=== PATIENT | male | born 1960 | race African-American/Black ===

== ENCOUNTER 2016-11-06 22:51 | Emergency (ER) | payer MEDICAID ==
[~2016-11-06] VITALS: Ht 175.3 cm; Wt 98.0 kg
[~2016-11-06 22:51] MED LIST: BENAZEPRIL; ULORIC
[2016-11-07] MEDS ORDERED: IPRATROPIUM BROMIDE (0.02%) 0.5MG/2.5ML NEB HHN STA (00:16)
[2016-11-07] MEDS ORDERED: ALBUTEROL (0.083%) 2.5MG/3ML NEB HHN STA (00:16)
[2016-11-07] MEDS ORDERED: KETOROLAC 60MG/2ML VIAL IM ONE (00:30)
[2016-11-07 02:04] LABS: CLARITY URINE CLEAR (CLEAR); COLOR URINE YELLOW (YELLOW); GLUCOSE URINE NEGATIVE (NEGATIVE); KETONES URINE NEGATIVE (NEGATIVE); LEUKOCYTE ESTERASE URINE NEGATIVE (NEGATIVE); NITRITE URINE NEGATIVE (NEGATIVE); OCCULT BLOOD URINE 1+ (NEGATIVE); PH URINE 5.5 (4.5-8.0); PROTEIN URINE NEGATIVE (NEGATIVE); SPECIFIC GRAVITY URINE 1.016 (1.005-1.030); UROBILINOGEN URINE 0.2 E.U./dL (0.2-1.0)
[2016-11-07 02:07] LABS: BACTERIA URINE NONE SEEN; CALCIUM PHOSPHATE CRYSTALS UR NONE SEEN /lpf; RBC URINE 0-2 /hpf (0-2); SQUAMOUS EPITHELIAL CELL URINE NONE SEEN /lpf (RARE/1+); WAXY CASTS URINE NONE SEEN /lpf; WBC URINE NONE SEEN /hpf (0-2); YEAST URINE NONE SEEN
[2016-11-07 02:58] VITALS: BP 113/75
== END 2016-11-07 03:00 | disposition home or self-care (01) ==
LOC: ER 22:52
DX: S39.012A Strain of muscle, fascia and tendon of lower back, initial encounter (principal); J44.9 Chronic obstructive pulmonary disease, unspecified; J06.9 Acute upper respiratory infection, unspecified; M19.90 Unspecified osteoarthritis, unspecified site; I10 Essential (primary) hypertension; M10.9 Gout, unspecified; G89.29 Other chronic pain; Z93.3 Colostomy status; X58.XXXA Exposure to other specified factors, initial encounter; Y93.89 Activity, other specified; Y99.8 Other external cause status; Y92.89 Other specified places as the place of occurrence of the external cause
CPT/HCPCS: 71010; 81001; 94640; 96372; 99285; J1885; J7611

== ENCOUNTER 2016-12-30 03:44 | Emergency (ER) | payer MEDICAID ==
[~2016-12-30] VITALS: Ht 175.3 cm; Wt 100.0 kg
[2016-12-30 04:34] VITALS: BP 148/88
[2016-12-30] MEDS ORDERED: SODIUM CHLORIDE 0.9% 1,000 ML IV ONE (04:51)
[2016-12-30 05:20] LABS: BASOPHILS % 0.5 % (0.0-2.0); CARBON DIOXIDE 28 mEq/L (21-32); CHLORIDE 108 mEq/L (98-107); HEMATOCRIT. 38.1 % (42.0-52.0); HEMOGLOBIN. 12.4 g/dL (14.0-18.0); LYMPHOCYTES % 42.4 % (20.0-50.0); MEAN CORPUSCULAR HEMOGLOBIN 27.9 pg (28.0-32.0); MEAN CORPUSCULAR VOLUME 85.7 fL (80.0-94.0); MEAN PLATELET VOLUME 8.7 fl (7.4-10.4); MONOCYTES % 7.9 % (2.0-8.0); NEUTROPHILS % 49.2 % (40.0-76.0); PLATELET 213 x1000/uL (130-400); RED BLOOD CELL COUNT 4.45 mill/uL (4.7-6.1); RED CELL DISTRIBUTION WIDTH 14.7 % (11.6-14.6)
== END 2016-12-30 06:55 | disposition home or self-care (01) ==
LOC: ER 04:03
DX: M54.9 Dorsalgia, unspecified (principal); R05 Cough; I10 Essential (primary) hypertension; J44.9 Chronic obstructive pulmonary disease, unspecified; Z87.01 Personal history of pneumonia (recurrent); Z93.3 Colostomy status; Z87.19 Personal history of other diseases of the digestive system
CPT/HCPCS: 36415; 71010; 80053; 83690; 85025; 93005; 96360; 99285; J7030; Z7610

== ENCOUNTER 2017-03-11 20:14 | Emergency (ER) | payer MEDICAID ==
[~2017-03-11] VITALS: Ht 175.3 cm; Wt 97.0 kg
[2017-03-11] MEDS ORDERED: KETOROLAC 60MG/2ML VIAL IM ONE (23:00)
[2017-03-11] MEDS ORDERED: SODIUM CHLORIDE 0.9% 1,000 ML IV ONE (23:00)
[2017-03-12 01:08] LABS: BASOPHILS % 0.6 % (0.0-2.0); HEMATOCRIT. 35.4 % (42.0-52.0); HEMOGLOBIN. 11.7 g/dL (14.0-18.0); LYMPHOCYTES % 35.4 % (20.0-50.0); MEAN CORPUSCULAR HEMOGLOBIN 27.8 pg (28.0-32.0); MEAN CORPUSCULAR VOLUME 84.2 fL (80.0-94.0); MEAN PLATELET VOLUME 9.2 fl (7.4-10.4); MONOCYTES % 10.4 % (2.0-8.0); NEUTROPHILS % 53.6 % (40.0-76.0); PLATELET 156 x1000/uL (130-400); RED BLOOD CELL COUNT 4.21 mill/uL (4.7-6.1); RED CELL DISTRIBUTION WIDTH 15.3 % (11.6-14.6)
[2017-03-12 01:13] LABS: CHLORIDE 106 mEq/L (98-107); INR 1.1
[2017-03-12 01:24] LABS: CARBON DIOXIDE 26 mEq/L (21-32)
[2017-03-12] MEDS ORDERED: SODIUM CHLORIDE 0.9% 1,000 ML IV ONE (01:30)
[2017-03-12 03:50] VITALS: BP 119/54
== END 2017-03-12 03:58 | disposition left against medical advice (07) ==
LOC: ER 21:12 → EDBEDREQTM 03-12 02:19 → EDBEDREQ 03-12 02:19 → ENRESERV 03-12 03:29 → ER 03-12 03:58 → CANBEDREQ 03-13 07:22
DX: M25.561 Pain in right knee (principal); M10.9 Gout, unspecified; N17.9 Acute kidney failure, unspecified; J44.9 Chronic obstructive pulmonary disease, unspecified; I10 Essential (primary) hypertension; Z91.14 Patient's other noncompliance with medication regimen; Z93.3 Colostomy status
CPT/HCPCS: 36415; 73562; 80053; 85025; 85610; 96360; 96361; 96372; 99285; J1885; J7030; Z7610

== ENCOUNTER 2017-08-10 09:29 | Emergency (ER) | payer MEDICAID ==
[~2017-08-10] VITALS: Ht 175.3 cm; Wt 96.0 kg
[2017-08-10] MEDS ORDERED: MORPHINE SULFATE 4 MG/ML CPJ (NOT FOR IM USE) IV STA (10:29)
[2017-08-10] MEDS ORDERED: ONDANSETRON HCL 4MG/2ML VIAL IV STA (10:29)
[2017-08-10] MEDS ORDERED: ASPIRIN 81MG TABLET PO STA (10:29)
[2017-08-10 12:09] LABS: CLARITY URINE CLEAR (CLEAR); COLOR URINE YELLOW (YELLOW); KETONES URINE NEGATIVE (NEGATIVE); LEUKOCYTE ESTERASE URINE NEGATIVE (NEGATIVE); NITRITE URINE NEGATIVE (NEGATIVE); OCCULT BLOOD URINE NEGATIVE (NEGATIVE); PH URINE 5.5 (4.5-8.0); PROTEIN URINE 1+ (NEGATIVE)
[2017-08-10 12:44] LABS: BASOPHILS % 0.3 % (0.0-2.0); HEMATOCRIT. 39.4 % (42.0-52.0); HEMOGLOBIN. 13.3 g/dL (14.0-18.0); LYMPHOCYTES % 50.7 % (20.0-50.0); MEAN CORPUSCULAR HEMOGLOBIN 28.8 pg (28.0-32.0); MEAN CORPUSCULAR VOLUME 85.5 fL (80.0-94.0); MEAN PLATELET VOLUME 8.9 fl (7.4-10.4); MONOCYTES % 8.6 % (2.0-8.0); NEUTROPHILS % 40.4 % (40.0-76.0); PLATELET 178 x1000/uL (130-400); RED BLOOD CELL COUNT 4.61 mill/uL (4.7-6.1); RED CELL DISTRIBUTION WIDTH 13.4 % (11.6-14.6)
[2017-08-10 12:49] LABS: CARBON DIOXIDE 27 mEq/L (21-32); CHLORIDE 107 mEq/L (98-107)
[2017-08-10 12:53] LABS: TROPONIN I < 0.02 ng/mL (0.00-0.04)
[2017-08-10 13:12] LABS: D-DIMER 0.41 mg/L FEU (<0.50); INR 1.1; PARTIAL THROMBOPLASTIN TIME 27.2 sec (23.4-31.0); PROTHROMBIN TIME 11.1 sec (9.4-11.6)
[2017-08-10 13:31] VITALS: BP 128/77
== END 2017-08-10 14:49 | disposition left against medical advice (07) ==
LOC: ER 09:29 → CANBEDREQ 14:38 → ER 14:49
DX: R06.09 Other forms of dyspnea (principal); M54.5 Low back pain; R51 Headache; I10 Essential (primary) hypertension; M19.90 Unspecified osteoarthritis, unspecified site; J44.9 Chronic obstructive pulmonary disease, unspecified; M10.9 Gout, unspecified
CPT/HCPCS: 36415; 71045; 72100; 80048; 81001; 83880; 84484; 85025; 85379; 85610; 85730; 87086; 93005; 96374; 96375; 99285; J2270; J2405

== ENCOUNTER 2017-10-17 10:44 | Emergency (ER) | payer MEDICAID ==
[~2017-10-17] VITALS: Ht 175.3 cm; Wt 105.0 kg
[2017-10-17 10:47] VITALS: BP 127/87
[2017-10-17] MEDS ORDERED: MORPHINE SULFATE 10 MG/ML CPJ IM ONE (12:00)
== END 2017-10-17 14:33 | disposition home or self-care (01) ==
LOC: ER 10:49
DX: M54.9 Dorsalgia, unspecified (principal); R51 Headache; F43.9 Reaction to severe stress, unspecified; I10 Essential (primary) hypertension; Z98.890 Other specified postprocedural states
CPT/HCPCS: 71045; 96372; 99283; J2270

== ENCOUNTER 2018-01-09 07:29 | Emergency (ER) | payer MEDICAID ==
[~2018-01-09] VITALS: Ht 175.3 cm; Wt 98.0 kg
[2018-01-09] MEDS ORDERED: KETOROLAC 60MG/2ML VIAL IM ONE (09:30)
[2018-01-09 10:03] LABS: CLARITY URINE CLEAR (CLEAR); COLOR URINE YELLOW (YELLOW); KETONES URINE NEGATIVE (NEGATIVE); LEUKOCYTE ESTERASE URINE NEGATIVE (NEGATIVE); NITRITE URINE NEGATIVE (NEGATIVE); OCCULT BLOOD URINE TRACE (NEGATIVE); PROTEIN URINE NEGATIVE (NEGATIVE); SPECIFIC GRAVITY URINE 1.016 (1.005-1.030)
[2018-01-09 10:54] VITALS: BP 133/88
== END 2018-01-09 10:56 | disposition home or self-care (01) ==
LOC: ER 07:29
DX: M13.842 Other specified arthritis, left hand (principal); M54.5 Low back pain; J44.9 Chronic obstructive pulmonary disease, unspecified; I10 Essential (primary) hypertension; Z79.899 Other long term (current) drug therapy
CPT/HCPCS: 81003; 96372; 99283; J1885

== ENCOUNTER 2018-01-13 06:54 | Emergency (ER) | payer MEDICAID ==
[~2018-01-13] VITALS: Ht 175.3 cm; Wt 98.0 kg
[2018-01-13] MEDS ORDERED: IBUPROFEN 800MG TABLET PO ONE (08:45)
[2018-01-13 09:57] LABS: CLARITY URINE CLEAR (CLEAR); COLOR URINE YELLOW (YELLOW); KETONES URINE NEGATIVE (NEGATIVE); LEUKOCYTE ESTERASE URINE NEGATIVE (NEGATIVE); NITRITE URINE NEGATIVE (NEGATIVE); OCCULT BLOOD URINE 1+ (NEGATIVE); PH URINE 5.5 (4.5-8.0); PROTEIN URINE TRACE (NEGATIVE); SPECIFIC GRAVITY URINE 1.018 (1.005-1.030)
[2018-01-13 12:00] LABS: CHLORIDE 106 mEq/L (98-107)
[2018-01-13 12:18] LABS: BASOPHILS % 0.1 % (0.0-2.0); HEMATOCRIT. 35.7 % (42.0-52.0); HEMOGLOBIN. 11.8 g/dL (14.0-18.0); LYMPHOCYTES % 31.9 % (20.0-50.0); MEAN CORPUSCULAR HEMOGLOBIN 29.2 pg (28.0-32.0); MEAN CORPUSCULAR VOLUME 88.4 fL (80.0-94.0); MEAN PLATELET VOLUME 8.5 fl (7.4-10.4); MONOCYTES % 5.6 % (2.0-8.0); NEUTROPHILS % 62.4 % (40.0-76.0); PLATELET 238 x1000/uL (130-400); RED BLOOD CELL COUNT 4.04 mill/uL (4.7-6.1); RED CELL DISTRIBUTION WIDTH 14.5 % (11.6-14.6)
[2018-01-13 13:00] VITALS: BP 135/66
== END 2018-01-13 13:57 | disposition home or self-care (01) ==
LOC: ER 06:54
DX: N20.0 Calculus of kidney (principal); J44.9 Chronic obstructive pulmonary disease, unspecified; I10 Essential (primary) hypertension; M19.90 Unspecified osteoarthritis, unspecified site
CPT/HCPCS: 36415; 71045; 76770; 80053; 81003; 85025; 99285

== ENCOUNTER 2018-04-16 15:04 | Emergency (ER) | payer MEDICAID ==
[~2018-04-16] VITALS: Ht 175.3 cm; Wt 95.0 kg
[2018-04-16 15:13] VITALS: BP 151/75
== END 2018-04-16 20:13 | disposition left against medical advice (07) ==
LOC: ER 15:04
DX: Z53.21 Procedure and treatment not carried out due to patient leaving prior to being seen by health care provider (principal)

== ENCOUNTER 2018-04-19 07:12 | Emergency (ER) | payer MEDICAID ==
[~2018-04-19] VITALS: Ht 175.3 cm; Wt 95.0 kg
[2018-04-19] MEDS ORDERED: KETOROLAC 30MG/ML VIAL IM ONE (08:30)
[2018-04-19 09:11] VITALS: BP 118/65
== END 2018-04-19 09:16 | disposition home or self-care (01) ==
LOC: ER 07:42
DX: M10.9 Gout, unspecified (principal); M79.89 Other specified soft tissue disorders; I10 Essential (primary) hypertension; Z93.3 Colostomy status; Z98.890 Other specified postprocedural states
CPT/HCPCS: 96372; 99283; J1885; Z7610

== ENCOUNTER 2018-09-02 11:09 | Emergency (ER) | payer MEDICAID ==
[~2018-09-02] VITALS: Ht 175.3 cm; Wt 98.0 kg
[2018-09-02] MEDS ORDERED: HYDROCODONE/ACETAMINOPHEN 5/325MG TABLET PO STA (11:44)
[2018-09-02 12:10] LABS: BASOPHILS % 0.9 % (0.0-2.0); HEMATOCRIT. 33.5 % (42.0-52.0); LYMPHOCYTES % 48.1 % (20.0-50.0); MEAN CORPUSCULAR HEMOGLOBIN 31.1 pg (28.0-32.0); MEAN CORPUSCULAR VOLUME 95.1 fL (80.0-94.0); MEAN PLATELET VOLUME 10.4 fl (7.4-10.4); MONOCYTES % 7.9 % (2.0-8.0); NEUTROPHILS % 43.1 % (40.0-76.0); PLATELET 148 x1000/uL (130-400); RED BLOOD CELL COUNT 3.53 mill/uL (4.7-6.1); RED CELL DISTRIBUTION WIDTH 16.4 % (11.6-14.6)
[2018-09-02 12:15] LABS: CHLORIDE 109 mEq/L (98-107)
[2018-09-02 12:23] LABS: D-DIMER 0.62 mg/L FEU (<0.50); PROTHROMBIN TIME 10.4 sec (9.1-11.1)
[2018-09-02 14:41] VITALS: BP 124/78
== END 2018-09-02 14:42 | disposition home or self-care (01) ==
LOC: ER 11:09
DX: R60.0 Localized edema (principal); N28.9 Disorder of kidney and ureter, unspecified; J44.9 Chronic obstructive pulmonary disease, unspecified; I10 Essential (primary) hypertension; M54.30 Sciatica, unspecified side; M19.90 Unspecified osteoarthritis, unspecified site; M10.9 Gout, unspecified; Z93.3 Colostomy status; Z87.828 Personal history of other (healed) physical injury and trauma; Z98.890 Other specified postprocedural states
CPT/HCPCS: 36415; 71045; 83880; 84484; 85379; 93005; 93970; 99284

== ENCOUNTER 2018-10-12 13:50 | Emergency (ER) | payer MEDICAID ==
[~2018-10-12] VITALS: Ht 175.3 cm; Wt 102.0 kg
[2018-10-12] MEDS ORDERED: KETOROLAC 60MG/2ML VIAL IM ONE (15:45)
[2018-10-12] MEDS ORDERED: ONDANSETRON 4MG ODT PO ONE (15:45)
[2018-10-12] MEDS ORDERED: HYDROCODONE/ACETAMINOPHEN 5/325MG TABLET PO ONE (15:45)
[2018-10-12 16:33] VITALS: BP 118/61
== END 2018-10-12 16:34 | disposition home or self-care (01) ==
LOC: ER 13:50
DX: M54.41 Lumbago with sciatica, right side (principal); M10.9 Gout, unspecified; I10 Essential (primary) hypertension; M25.532 Pain in left wrist
CPT/HCPCS: 96372; 99283; J1885; Q0162

== ENCOUNTER 2018-11-30 11:00 | Emergency (ER) | payer MEDICAID ==
[~2018-11-30] VITALS: Ht 175.3 cm; Wt 100.0 kg
[2018-11-30] MEDS ORDERED: KETOROLAC 30MG/ML VIAL IM ONE (11:30)
[2018-11-30 12:30] VITALS: BP 115/61
== END 2018-11-30 12:35 | disposition home or self-care (01) ==
LOC: ER 11:22
DX: M54.5 Low back pain (principal); G89.29 Other chronic pain; M19.90 Unspecified osteoarthritis, unspecified site; M54.30 Sciatica, unspecified side; M10.9 Gout, unspecified; I10 Essential (primary) hypertension; Z93.3 Colostomy status; Z98.890 Other specified postprocedural states
CPT/HCPCS: 71045; 96372; 99283; J1885

== ENCOUNTER 2018-12-28 10:48 | Emergency (ER) | payer MEDICAID ==
[~2018-12-28] VITALS: Ht 175.3 cm; Wt 100.0 kg
[2018-12-28] MEDS ORDERED: DIPHENHYDRAMINE 25MG CAPSULE PO ONE (11:15)
[2018-12-28] MEDS ORDERED: METOCLOPRAMIDE HCL 5MG TABLET PO ONE (11:15)
[2018-12-28] MEDS ORDERED: KETOROLAC 30MG/ML VIAL IM ONE (11:15)
[2018-12-28 12:18] VITALS: BP 135/67
== END 2018-12-28 12:20 | disposition home or self-care (01) ==
LOC: ER 10:48
DX: R51 Headache (principal); I10 Essential (primary) hypertension; M19.90 Unspecified osteoarthritis, unspecified site; M10.9 Gout, unspecified; Z93.3 Colostomy status
CPT/HCPCS: 96372; 99283; J1885; J8597; Q0163

== ENCOUNTER 2019-03-01 08:53 | Emergency (ER) | payer MEDICAID ==
[~2019-03-01] VITALS: Ht 175.3 cm; Wt 100.0 kg
[2019-03-01] MEDS ORDERED: KETOROLAC 30MG/ML VIAL IV STA (09:23)
[2019-03-01] MEDS ORDERED: MORPHINE SULFATE 4 MG/ML CPJ (NOT FOR IM USE) IV STA (09:23)
[2019-03-01 13:07] VITALS: BP 130/55
== END 2019-03-01 13:07 | disposition home or self-care (01) ==
LOC: ER 08:53
DX: M19.031 Primary osteoarthritis, right wrist (principal); M54.2 Cervicalgia
CPT/HCPCS: 72040; 73110; 82962; 93005; 96374; 96375; 99284; J1885; J2270

== ENCOUNTER 2019-03-06 15:28 | Emergency (ER) | payer MEDICAID ==
[~2019-03-06] VITALS: Ht 175.3 cm; Wt 108.0 kg
[2019-03-06] MEDS ORDERED: KETOROLAC 60MG/2ML VIAL IM ONE (17:00)
[2019-03-06 18:14] VITALS: BP 124/81
[2019-03-06] MEDS ORDERED: BACITRACIN ZINC OINT UDPKT TOP ONE (18:15)
== END 2019-03-06 18:14 | disposition home or self-care (01) ==
LOC: ER 15:28
DX: M79.674 Pain in right toe(s) (principal)
CPT/HCPCS: 73630; 96372; 99283; J1885

== ENCOUNTER 2019-03-25 11:34 | Emergency (ER) | payer MEDICAID ==
[~2019-03-25] VITALS: Ht 177.8 cm; Wt 93.0 kg
[2019-03-25 11:48] VITALS: BP 101/54
[2019-03-25] MEDS ORDERED: HYDROCODONE/ACETAMINOPHEN 5/325MG TABLET PO ONE (12:45)
[2019-03-25] MEDS ORDERED: KETOROLAC 60MG/2ML VIAL IM ONE (12:45)
== END 2019-03-25 14:00 | disposition home or self-care (01) ==
LOC: ER 11:34
DX: M10.9 Gout, unspecified (principal)
CPT/HCPCS: 96372; 99283; J1885

== ENCOUNTER 2019-04-07 10:03 | Emergency (ER) | payer MEDICAID ==
[~2019-04-07] VITALS: Ht 175.3 cm; Wt 95.0 kg
[2019-04-07] MEDS ORDERED: KETOROLAC 60MG/2ML VIAL IM ONE (12:30)
[2019-04-07 13:27] VITALS: BP 124/44
[2019-04-07] MEDS ORDERED: DEXAMETHASONE 10 MG/ML VIAL IM ONE (13:30)
[2019-04-07] MEDS ORDERED: DEXAMETHASONE 10 MG/ML VIAL IM SCH (18:00)
== END 2019-04-07 15:14 | disposition home or self-care (01) ==
LOC: ER 10:03
DX: L97.511 Non-pressure chronic ulcer of other part of right foot limited to breakdown of skin (principal); M54.89 Other dorsalgia
CPT/HCPCS: 71045; 73620; 82962; 96372; 99283; J1885

== ENCOUNTER 2019-06-01 09:18 | Emergency (ER) | payer MEDICAID ==
[~2019-06-01] VITALS: Ht 185.4 cm; Wt 120.0 kg
[2019-06-01] MEDS ORDERED: KETOROLAC 30MG/ML VIAL IM ONE (10:30)
[2019-06-01] MEDS ORDERED: HYDROCODONE/ACETAMINOPHEN 5/325MG TABLET PO ONE (10:30)
[2019-06-01 11:35] VITALS: BP 146/78
== END 2019-06-01 12:07 | disposition home or self-care (01) ==
LOC: ER 09:18
DX: M25.531 Pain in right wrist (principal); M79.641 Pain in right hand; I10 Essential (primary) hypertension; M19.90 Unspecified osteoarthritis, unspecified site; Z93.3 Colostomy status
CPT/HCPCS: 96372; 99283; J1885; Z7610

== ENCOUNTER 2019-07-24 11:51 | Emergency (ER) | payer MEDICAID ==
[~2019-07-24] VITALS: Ht 167.6 cm; Wt 95.0 kg
[2019-07-24 13:02] VITALS: BP 140/80
[2019-07-24] MEDS ORDERED: DEXAMETHASONE 4MG TABLET PO ONE (14:45)
== END 2019-07-24 15:48 | disposition home or self-care (01) ==
LOC: ER 11:51
DX: J40 Bronchitis, not specified as acute or chronic (principal); M10.9 Gout, unspecified; I10 Essential (primary) hypertension
CPT/HCPCS: 99283; J8540

== ENCOUNTER 2019-08-15 08:13 | Emergency (ER) | payer MEDICAID ==
[~2019-08-15] VITALS: Ht 175.3 cm; Wt 98.0 kg
[2019-08-15] MEDS ORDERED: KETOROLAC 30MG/ML VIAL IM ONE (10:45)
[2019-08-15 11:32] VITALS: BP 103/59
== END 2019-08-15 11:54 | disposition home or self-care (01) ==
LOC: ER 08:23
DX: S00.93XA Contusion of unspecified part of head, initial encounter (principal); M10.9 Gout, unspecified; I10 Essential (primary) hypertension; I25.2 Old myocardial infarction; W19.XXXA Unspecified fall, initial encounter; Y93.89 Activity, other specified; Y92.89 Other specified places as the place of occurrence of the external cause; Y99.8 Other external cause status
CPT/HCPCS: 70450; 96372; 99284; J1885